=== PATIENT | female | born 2000 | race Caucasian/White ===

== ENCOUNTER 2019-07-20 23:15 | Emergency (ER) | payer BC ==
[2019-07-20] MEDS ORDERED: Amoxicillin/Clavulanate K 875-125 MG Tab PO ONE (23:46)
--- NOTE | 2019-07-20 23:53 | EDM.PDOC ---
ED HPI GENERAL MEDICAL PROBLEM - General Chief Complaint: General Stated Complaint: SINUS INFECTION Time Seen by Provider: 07/20/19 23:35 Source of Information: Reports: Patient - History of Present Illness INITIAL COMMENTS - FREE TEXT/NARRATIVE: Patient is a 18 YO WF who presented to the ED because of lrft frontal and maxillay pain. She also c/o nasal congestion. Denies having any fever or chills. - Related Data Allergies Allergy/AdvReac Type Severity Reaction Status Date / Time dog dander Allergy Swollen Verified 08/12/18 23:22 Eyes raspberry Allergy Hives Verified 08/12/18 23:22 Home Meds: Home Meds Albuterol Sulfate [Proventil Hfa] 2 puff INH Q4HR PRN 08/12/18 [History] Famotidine [Pepcid] 20 mg PO BID #10 tab 08/12/18 [Rx] Famotidine [Pepcid] 20 mg PO BID #10 tab 08/12/18 [Rx] Montelukast [Singulair] 10 mg PO DAILY 08/12/18 [History] Norethindrone-Ethinyl Estrad [Dasetta 1-35-28 Tablet] 1 tab PO DAILY 08/12/18 [ History] Sertraline [Zoloft] 200 mg PO DAILY 08/12/18 [History] azaTHIOprine [Azathioprine] 125 mg PO DAILY 08/12/18 [History] busPIRone [Buspar] 7.5 mg PO BID 08/12/18 [History] diphenhydrAMINE [Benadryl] 25 mg PO DAILY PRN 08/12/18 [History] hydrOXYzine pamoate [Vistaril] 50 mg PO Q6H PRN #20 cap 08/12/18 [Rx] traZODone 150 mg PO DAILY 08/12/18 [History] Social & Family History - Family History Family Medical History: Noncontributory - Caffeine Use Caffeine Use: Reports: Soda ED ROS GENERAL - Review of Systems Review Of Systems: Unable To Obtain Constitutional: Reports: No Symptoms HEENT: Reports: Other (facial pain) Cardiovascular: Reports: No Symptoms Endocrine: Reports: No Symptoms, Polyuria : Reports: No Symptoms ED EXAM, GENERAL - Physical Exam Exam: See Below Exam Limited By: No Limitations General Appearance: Alert, No Apparent Distress Eye Exam: Bilateral Eye: PERRL Ears: Normal External Exam, Normal Canal, Hearing Grossly Normal Nose: Normal Inspection, Normal Mucosa, No Blood Throat/Mouth: Normal Inspection, Normal Lips, Normal Teeth Head: Atraumatic, Normocephalic, Sinus Tenderness, Other (left frontal and maxillary tenderness) Neck: Normal Inspection, Supple Respiratory/Chest: No Respiratory Distress Cardiovascular: Normal Peripheral Pulses, Regular Rate, Rhythm, No Edema Course - Orders/Labs/Meds Orders: Active Orders 24 hr Category Date Time Status Amoxicillin/Clavulanate K [Augmentin 875 MG/125 MG] Med 07/20/19 23:46 Once 1 tab PO ONETIME ONE Departure - Departure Time of Disposition: 23:45 Disposition: Home, Self-Care 01 Condition: Good Clinical Impression: Sinusitis - Discharge Information *PRESCRIPTION DRUG MONITORING PROGRAM REVIEWED*: No *COPY OF PRESCRIPTION DRUG MONITORING REPORT IN PATIENT MONA: No Instructions: Sinusitis, Adult, [id number] Referrals: PCP,None [Primary Care Provider] - Additional Instructions: Please read discharge instructions on sinusitis increase oral fluids augmentin 875 mg twice daily for 10 days Ibuprofen 800 mg with tylenol 1000 mg every 8 hours as needed for pain. - My Orders Last 24 Hours: My Active Orders 07/20/19 23:46 Amoxicillin/Clavulanate K [Augmentin 875 MG/125 MG] 1 tab PO ONETIME ONE - Assessment/Plan Last 24 Hours: My Active Orders 07/20/19 23:46 Amoxicillin/Clavulanate K [Augmentin 875 MG/125 MG] 1 tab PO ONETIME ONE
== END 2019-07-20 23:56 | disposition home or self-care (01) ==
LOC: FB.ED 23:15
DX: J32.9 Chronic sinusitis, unspecified (principal); Z91.09 Other allergy status, other than to drugs and biological substances; Z91.018 Allergy to other foods
CPT/HCPCS: 99282; A9270